=== PATIENT | female | born 2005 | race Two or more races ===

== ENCOUNTER 2025-02-07 07:41 | Inpatient (IN) ==
[2025-02-07] MEDS ORDERED: LIDOCAINE 1% LOCAL 20 ML VIAL INFIL PRN (09:43)
[2025-02-07] MEDS ORDERED: OXYTOCIN 30 UNITS/NSS 30 UNITS/500 ML BAG IV PRN (09:43)
--- NOTE | 2025-02-07 09:43 | Obstetrical Progress Note ---
Date of Service February 07, 2025 Assessment & Plan (1) Encounter for induction of labor: Plan: Induction of labor. Patient is a 19-year-old at 39+ weeks On arrival today patient has no shortness of breath no chills no fever no rupture of membranes or bloody show. Patient has breath plan I have reviewed with plan patient including the use of Pitocin. heart rate category 1 Bedside ultrasound shows cephalic presentation. Vaginal exam; centimeters/50%/posterior Plan 1 admit 2.Labs 3.Cytotec PO 4. GBS positive. Prophylactic antibiotics. Admission and Anticipated Discharge Date Admission Date: February 07, 2025 Results & Data Vital Signs (Past 12 Hours) Vital Signs Temp Pulse Resp BP 02/07/25 07:57 36.8 C 18 02/07/25 07:53 69 119/68 02/07/25 07:52 18 02/07/25 07:52 36.8 C 18
[2025-02-07] MEDS ORDERED: Nursing to Pharmacy Communication SCH (10:00)
[2025-02-07] MEDS: miSOPROStoL 50 MCG TAB PO SCH (10:00)
[2025-02-07 10:21] LABS: Hematocrit (blood only) 36.5 % (37.0-47.0); Hemoglobin 12.8 g/dL (12.0-16.0); Mean Corpuscular Hemoglobin 30.5 pg (25.0-34.0); Mean Corpuscular Volume 87.1 fL (80.0-100.0); Platelet Count 189 K/uL (130-400); RDW Standard Deviation 38.7 fL (36.4-46.3); Red Blood Count 4.19 M/uL (4.20-5.40); White Blood Count 8.47 K/ul (4.8-10.8)
[2025-02-07] MEDS ORDERED: miSOPROStoL 50 MCG TAB PO SCH (12:00)
--- NOTE | 2025-02-07 14:42 | Obstetrical Progress Note ---
Date of Service February 07, 2025 Assessment & Plan (1) Encounter for induction of labor: Plan: FHR CAT! Ctx 2-3mins VE 2/75/-2 pt received one dose of Cytotoec earlier Plan start Pitocin augmentation Admission and Anticipated Discharge Date Admission Date: February 07, 2025 Results & Data Vital Signs (Past 12 Hours) Vital Signs Temp Pulse Resp BP O2 Del Method 02/07/25 11:32 63 114/58 L 02/07/25 11:31 36.6 C 18 Room Air 02/07/25 11:31 18 02/07/25 11:31 36.6 C 18 02/07/25 07:57 36.8 C 18 02/07/25 07:53 69 119/68 02/07/25 07:52 18 02/07/25 07:52 36.8 C 18
[2025-02-07] MEDS: LACTATED RINGER'S 1,000 ML IV PRN (14:54)
--- NOTE | 2025-02-07 15:17 | Anesthesiology Consultation ---
Date of Service February 07, 2025 Assessment & Plan Chart Review Chart Review: Acceptable Risk for Labor Epidural Consults Requested none History Height/Weight Height: 5 ft 2 in Weight: 91.626 kg Allergies Allergy/AdvReac Type Severity Reaction Status Date / Time folic acid [From Megavite] Allergy Rash Verified 01/19/25 00:59 herbal complex no.190 Allergy Rash Verified 01/19/25 00:59 [From Megavite] iron [From Megavite] Allergy Rash Verified 01/19/25 00:59 latex Allergy Rash Verified 01/19/25 00:36 Milk Containing Products Allergy Nausea Verified 01/19/25 01:00 (Dairy) multivitamin with minerals Allergy Rash Verified 01/19/25 00:59 [From Megavite] Medications Home Medications Medication Instructions Recorded Confirmed Last Taken clindamycin 1 %-benzoyl peroxide 5 1 applic topical AMHS 01/26/25 02/07/25 02/06/25 % topical gel ferrous sulfate 325 mg (65 mg 325 mg PO DAILY 01/26/25 02/07/25 02/06/25 iron) tablet (iron) bn-wxw-nhxgb 180 mcg-om3 32.5 1 tab PO DAILY 01/26/25 02/07/25 02/07/25 ft-zuv-cuw-other mm6f-[id number] chew tablet ( Gummies (DHA-EPA)) promethazine 25 mg tablet 25 mg PO Q6 PRN Nausea 01/26/25 02/07/25 Unknown Active Medications Generic Name Dose Route Start Last Admin Trade Name Freq PRN Reason Stop Dose Admin Lactated Ringer's 1,000 mls @ 125 mls/hr 02/07/25 09:43 02/07/25 15:03 Lr IV 02/09/25 09:42 125 mls/hr .Q8H PRN Infusion L&D Protocol Protocol Misoprostol 50 mcg 02/07/25 10:00 02/07/25 10:00 Misoprostol 50 Mcg Tab PO 03/09/25 09:59 50 mcg Q4 NOAH Administration Past Family History Family History Other Breast cancer Diabetes Heart disease Past Surgical History Surgical History Hx of cholecystectomy Status post wisdom tooth extraction [place] teeth removed Social History Smoking Status: Never smoker Do You Dip or Chew Tobacco: No Hx Alcohol Use: No Hx Substance Use: No Physical Exam Vital Signs Last Vital Signs Temp 36.6 C 02/07/25 11:31 Pulse 63 02/07/25 11:32 Resp 18 02/07/25 11:31 BP 114/58 L 02/07/25 11:32 O2 Del Method Room Air 02/07/25 11:31 Testing Laboratory Results 02/07/25 09:14 Blood Type A Positive 02/07/25 09:18 Antibody Screen NEGATIVE 02/07/25 09:18
[2025-02-07] MEDS ORDERED: diphenhydrAMINE 50 MG/ML VIAL IV PRN (15:19)
[2025-02-07] MEDS ORDERED: ROPIVACAINE 0.5% PF 5 MG/ML 20 ML VIAL EPI PRN (15:19)
[2025-02-07] MEDS ORDERED: NALOXONE HCL 1 MG in SODIUM CHLORIDE 0.9% 1,000 ML IV PRN (15:19)
[2025-02-07] MEDS ORDERED: LIDOCAINE 2% MPF LOCAL 5 ML VIAL EPI PRN (15:19)
[2025-02-07] MEDS ORDERED: SODIUM CHLORIDE 0.9% PF INJ 10 ML VIAL EPI PRN (15:19)
[2025-02-07] MEDS ORDERED: NALBUPHINE HCL INJ 10 MG/ML AMP IV PRN (15:19)
[2025-02-07] MEDS ORDERED: NALOXONE HCL 0.4 MG/1 ML VIAL/CARP IV PRN (15:19)
[2025-02-07] MEDS ORDERED: BUPIVACAINE 0.25% PF 30 ML VIAL EPI PRN (15:19)
[2025-02-07] MEDS: LIDOCAINE 2%/EPINEPHRINE 1:200,000 20 ML PF ONE (15:42)
[2025-02-07] MEDS: fentANYL 2 MCG/ML BUPIVacaine 0.125%-NSS 100ML BAG ONE (15:42)
[2025-02-07] MEDS: PENICILLIN GK 6 MU in DEXTROSE 5% 250 ML IV STA (15:42)
[2025-02-07] MEDS: SODIUM CHLORIDE 0.9% PF INJ 10 ML VIAL ONE (16:01)
[2025-02-07] MEDS: BUPIVACAINE 0.25% PF 30 ML VIAL ONE (16:01)
[2025-02-07] MEDS: BUPIVACAINE 0.25% PF 30 ML VIAL EPI STA (16:01)
[2025-02-07] MEDS: SODIUM CHLORIDE 0.9% PF INJ 10 ML VIAL EPI STA (16:02)
[2025-02-07] MEDS: LIDOCAINE 2%/EPINEPHRINE 1:200,000 20 ML PF EPI STA (16:02)
--- NOTE | 2025-02-07 16:54 | Obstetrical Progress Note ---
Date of Service February 07, 2025 Assessment & Plan (1) Encounter for induction of labor: Plan: Doing well Received epidural. heart rate category 1 Contractions; 2 to 3 minutes. Vaginal exam; 3/75%/-2 Pitocin ; None Padded antibiotic for GBS prophylaxis. Attempt to AB ROM with amnio hook and scalp electrode showed very little flid Plan Continue labor induction Post will start Pitocin augmentation if contractions spaced out or decrease in frequency or intensity. Admission and Anticipated Discharge Date Admission Date: February 07, 2025 Results & Data Vital Signs (Past 12 Hours) Vital Signs Temp Pulse Resp BP Pulse Ox Pulse Ox O2 Del Method 02/07/25 16:49 63 129/83 02/07/25 16:45 58 L 100 02/07/25 16:40 63 99 02/07/25 16:35 47 L 98 02/07/25 16:34 64 129/71 02/07/25 16:30 51 L 98 02/07/25 16:25 54 L 98 02/07/25 16:20 59 L 99 02/07/25 16:19 54 L 124/62 02/07/25 16:15 57 L 98 02/07/25 16:10 62 98 02/07/25 16:05 67 98 02/07/25 16:03 58 L 113/64 02/07/25 16:00 100 02/07/25 16:00 55 L 98 02/07/25 15:55 63 99 02/07/25 15:50 62 98 02/07/25 15:47 64 111/62 02/07/25 15:45 69 105/59 L 96 02/07/25 15:43 71 100/58 L 02/07/25 15:41 63 106/58 L 02/07/25 15:40 98 02/07/25 15:40 69 02/07/25 15:40 67 115/61 02/07/25 15:35 58 L 98 02/07/25 15:30 63 99 02/07/25 15:25 73 97 02/07/25 11:32 63 114/58 L 02/07/25 11:31 36.6 C 18 Room Air 02/07/25 11:31 18 02/07/25 11:31 36.6 C 18 02/07/25 07:57 36.8 C 18 02/07/25 07:53 69 119/68 12/01/25 07:52 18 02/07/25 07:52 36.8 C 18 O2 Del Method 02/07/25 16:49 02/07/25 16:45 02/07/25 16:40 02/07/25 16:35 02/07/25 16:34 02/07/25 16:30 02/07/25 16:25 02/07/25 16:20 02/07/25 16:19 02/07/25 16:15 02/07/25 16:10 02/07/25 16:05 02/07/25 16:03 02/07/25 16:00 Room Air 02/07/25 16:00 02/07/25 15:55 02/07/25 15:50 02/07/25 15:47 02/07/25 15:45 02/07/25 15:43 02/07/25 15:41 02/07/25 15:40 02/07/25 15:40 02/07/25 15:40 02/07/25 15:35 02/07/25 15:30 02/07/25 15:25 02/07/25 11:32 02/07/25 11:31 02/07/25 11:31 02/07/25 11:31 02/07/25 07:57 02/07/25 07:53 02/07/25 07:52 02/07/25 07:52
[2025-02-07] MEDS: OXYTOCIN 30 UNITS/NSS 30 UNITS/500 ML BAG IV PRN (17:07)
[2025-02-07] MEDS: PENICILLIN GK 3 MU in DEXTROSE 5% 100 ML IV PRN (20:31)
--- NOTE | 2025-02-07 21:53 | Obstetrical Progress Note ---
Date of Service February 07, 2025 Assessment & Plan (1) Encounter for induction of labor: Plan: Pt doing well FHR; CAT1 Ctx; Poor tracing Pit; 8Mu Antibx for GBS prophy VE; 3/75/-2 with bulging membranes ARM with amnio hook- clear fluid IUPC placed without difficulty for better ctx. tracing Admission and Anticipated Discharge Date Admission Date: February 07, 2025 Results & Data Vital Signs (Past 12 Hours) Vital Signs Temp Pulse Resp BP Pulse Ox Pulse Ox O2 Del Method 02/07/25 21:45 80 100 02/07/25 21:40 58 L 99 02/07/25 21:37 54 L 119/64 02/07/25 21:35 48 L 99 02/07/25 21:30 49 L 97 02/07/25 21:25 50 L 97 02/07/25 21:22 46 L 112/60 02/07/25 21:20 49 L 99 02/07/25 21:15 49 L 99 02/07/25 21:10 50 L 100 02/07/25 21:07 46 L 119/58 L 02/07/25 21:05 55 L 99 02/07/25 21:00 52 L 99 02/07/25 20:55 50 L 100 02/07/25 20:53 50 L 131/60 02/07/25 20:50 50 L 98 02/07/25 20:45 82 100 02/07/25 20:41 71 101/53 L 02/07/25 20:40 77 98 02/07/25 20:39 73 95/47 L 02/07/25 20:38 86 109/52 L 02/07/25 20:35 84 99 02/07/25 20:30 61 98 02/07/25 20:25 66 99 02/07/25 20:23 60 138/78 02/07/25 20:20 67 98 02/07/25 20:15 83 98 02/07/25 20:10 66 98 02/07/25 20:07 55 L 117/68 02/07/25 20:05 51 L 98 02/07/25 20:00 56 L 98 02/07/25 19:55 62 97 02/07/25 19:50 61 98 02/07/25 19:45 53 L 98 02/07/25 19:40 64 97 02/07/25 19:38 59 L 118/55 L 02/07/25 19:35 61 98 02/07/25 19:30 65 99 02/07/25 19:25 54 L 100 02/07/25 19:23 59 L 123/72 02/07/25 19:20 48 L 98 02/07/25 19:15 60 97 02/07/25 19:10 66 100 02/07/25 19:07 59 L 118/71 02/07/25 19:05 36.8 C 51 L 18 100 02/07/25 18:55 50 L 98 02/07/25 18:50 48 L 99 02/07/25 18:49 63 158/74 H 02/07/25 18:45 58 L 99 02/07/25 18:40 61 98 02/07/25 18:35 51 L 97 02/07/25 18:34 54 L 120/58 L 02/07/25 18:30 53 L 98 02/07/25 18:25 53 L 99 02/07/25 18:20 51 L 97 02/07/25 18:19 74 124/81 02/07/25 18:15 55 L 99 02/07/25 18:10 51 L 100 02/07/25 18:05 54 L 125/71 100 02/07/25 18:00 58 L 18 98 02/07/25 17:55 48 L 97 02/07/25 17:50 45 L 98 02/07/25 17:49 47 L 126/58 L 02/07/25 17:45 46 L 98 02/07/25 17:40 47 L 98 02/07/25 17:35 54 L 99 02/07/25 17:30 54 L 97 02/07/25 17:25 53 L 96 02/07/25 17:20 51 L 98 02/07/25 17:18 58 L 129/74 02/07/25 17:15 64 98 02/07/25 17:10 68 99 02/07/25 17:05 57 L 98 02/07/25 17:03 66 125/81 02/07/25 17:00 36.8 C 63 18 98 02/07/25 16:55 66 98 02/07/25 16:50 71 100 02/07/25 16:49 63 129/83 02/07/25 16:45 58 L 100 02/07/25 16:40 63 99 02/07/25 16:35 47 L 98 02/07/25 16:34 64 129/71 02/07/25 16:30 51 L 98 02/07/25 16:25 54 L 98 02/07/25 16:20 59 L 99 02/07/25 16:19 54 L 124/62 02/07/25 16:15 57 L 98 02/07/25 16:10 62 98 02/07/25 16:05 67 98 02/07/25 16:03 58 L 113/64 02/07/25 16:00 100 02/07/25 16:00 55 L 18 98 02/07/25 15:55 63 99 02/07/25 15:50 62 98 02/07/25 15:47 64 111/62 02/07/25 15:45 69 105/59 L 96 02/07/25 15:43 71 100/58 L 02/07/25 15:41 63 106/58 L 02/07/25 15:40 98 02/07/25 15:40 69 02/07/25 15:40 67 115/61 02/07/25 15:35 58 L 98 02/07/25 15:30 63 99 02/07/25 15:25 73 97 02/07/25 11:32 63 114/58 L 02/07/25 11:31 36.6 C 18 Room Air 02/07/25 11:31 18 02/07/25 11:31 36.6 C 18 O2 Del Method 02/07/25 21:45 02/07/25 21:40 02/07/25 21:37 02/07/25 21:35 02/07/25 21:30 02/07/25 21:25 02/07/25 21:22 02/07/25 21:20 02/07/25 21:15 02/07/25 21:10 02/07/25 21:07 02/07/25 21:05 02/07/25 21:00 02/07/25 20:55 02/07/25 20:53 02/07/25 20:50 02/07/25 20:45 02/07/25 20:41 02/07/25 20:40 02/07/25 20:39 02/07/25 20:38 02/07/25 20:35 02/07/25 20:30 02/07/25 20:25 02/07/25 20:23 02/07/25 20:20 02/07/25 20:15 02/07/25 20:10 02/07/25 20:07 02/07/25 20:05 02/07/25 20:00 02/07/25 19:55 02/07/25 19:50 02/07/25 19:45 02/07/25 19:40 02/07/25 19:38 02/07/25 19:35 02/07/25 19:30 02/07/25 19:25 02/07/25 19:23 02/07/25 19:20 02/07/25 19:15 02/07/25 19:10 02/07/25 19:07 02/07/25 19:05 02/07/25 18:55 02/07/25 18:50 02/07/25 18:49 02/07/25 18:45 02/07/25 18:40 02/07/25 18:35 02/07/25 18:34 02/07/25 18:30 02/07/25 18:25 02/07/25 18:20 02/07/25 18:19 02/07/25 18:15 02/07/25 18:10 02/07/25 18:05 02/07/25 18:00 02/07/25 17:55 02/07/25 17:50 02/07/25 17:49 02/07/25 17:45 02/07/25 17:40 02/07/25 17:35 02/07/25 17:30 02/07/25 17:25 02/07/25 17:20 02/07/25 17:18 02/07/25 17:15 02/07/25 17:10 02/07/25 17:05 02/07/25 17:03 02/07/25 17:00 02/07/25 16:55 02/07/25 16:50 02/07/25 16:49 02/07/25 16:45 02/07/25 16:40 02/07/25 16:35 02/07/25 16:34 02/07/25 16:30 02/07/25 16:25 02/07/25 16:20 02/07/25 16:19 02/07/25 16:15 02/07/25 16:10 02/07/25 16:05 02/07/25 16:03 02/07/25 16:00 Room Air 02/07/25 16:00 02/07/25 15:55 02/07/25 15:50 02/07/25 15:47 02/07/25 15:45 02/07/25 15:43 02/07/25 15:41 02/07/25 15:40 02/07/25 15:40 02/07/25 15:40 02/07/25 15:35 02/07/25 15:30 02/07/25 15:25 02/07/25 11:32 02/07/25 11:31 02/07/25 11:31 02/07/25 11:31
[2025-02-08] MEDS: fentANYL 2 MCG/ML BUPIVacaine 0.125%-NSS 100ML BAG EPI PRN (00:31)
--- NOTE | 2025-02-08 03:34 | OB/GYN Consultation ---
Date of Consultation February 08, 2025 Assessment & Plan (1) Encounter for induction of labor: Pt doing well FHR shows recurrent early decels with ?late recovery component. Moderate variability VE; 4/75/-2 with bloody show Pitocin is 4mu Pit turned off. IVF bolus started and oxygen given Will reevaluate History of Present Illness Attending Physician: Sam Ragsdale MD Allergies Allergy/AdvReac Type Severity Reaction Status Date / Time folic acid [From Megavite] Allergy Rash Verified 01/19/25 00:59 herbal complex no.190 Allergy Rash Verified 01/19/25 00:59 [From Megavite] iron [From Megavite] Allergy Rash Verified 01/19/25 00:59 latex Allergy Rash Verified 01/19/25 00:36 Milk Containing Products Allergy Nausea Verified 01/19/25 01:00 (Dairy) multivitamin with minerals Allergy Rash Verified 01/19/25 00:59 [From Megavite] Home Medications Medication Instructions Recorded Confirmed Type clindamycin 1 %-benzoyl peroxide 5 1 applic topical AMHS 01/26/25 02/07/25 History % topical gel ferrous sulfate 325 mg (65 mg 325 mg PO DAILY 01/26/25 02/07/25 History iron) tablet (iron) vg-maq-nogig 180 mcg-om3 32.5 1 tab PO DAILY 01/26/25 02/07/25 History rm-hks-wgv-other zv3s-usjs chew tablet ( Gummies (DHA-EPA)) promethazine 25 mg tablet 25 mg PO Q6 PRN Nausea 01/26/25 02/07/25 History Patient History Surgical History Hx of cholecystectomy Status post wisdom tooth extraction [place] teeth removed Family History Other Breast cancer Diabetes Heart disease Social History (Updated 02/07/25 @ 07:44 by Vanessa Lala RN) Smoking Status: Never smoker Second Hand Exposure: No; Do You Dip or Chew Tobacco: No; Tobacco Cessation Education Requested by Patient: No Hx Alcohol Use: No Hx Substance Use: No Preferred Language: Polish Communication Ability: Effective Gaming Floor Supervisor Required: No Beliefs That Will Affect Care: None marital status: Engaged Current Living Situation: Significant Other Other Information That Helps Us Care for You: No Feels Safe at Home: Yes Safety Concerns: Feels Safe At This Time Assistive Devices: None Results & Data Vital Signs (Past 12 Hours) Vital Signs Temp Pulse Resp BP Pulse Ox Pulse Ox O2 Del Method 02/08/25 03:25 58 L 100 02/08/25 03:23 51 L 119/61 02/08/25 03:20 62 100 02/08/25 03:16 65 107/58 L 02/08/25 03:15 78 98 02/08/25 03:10 70 99 02/08/25 03:08 81 106/58 L 02/08/25 03:05 109 H 100 02/08/25 03:00 37.4 C 54 L 18 98 02/08/25 02:55 52 L 98 02/08/25 02:52 46 L 101/52 L 02/08/25 02:50 49 L 96 02/08/25 02:45 48 L 96 02/08/25 02:40 47 L 97 02/08/25 02:38 48 L 97/56 L 02/08/25 02:35 48 L 97 02/08/25 02:30 48 L 97 02/08/25 02:25 51 L 97 02/08/25 02:22 50 L 97/55 L 02/08/25 02:20 50 L 97 02/08/25 02:15 44 L 97 02/08/25 02:10 46 L 97 02/08/25 02:07 46 L 96/51 L 02/08/25 02:05 47 L 96 02/08/25 02:00 47 L 96 02/08/25 01:55 47 L 97 02/08/25 01:51 46 L 105/52 L 02/08/25 01:50 46 L 97 02/08/25 01:45 47 L 96 02/08/25 01:40 49 L 97 02/08/25 01:37 46 L 99/51 L 02/08/25 01:35 52 L 98 02/08/25 01:30 50 L 98 02/08/25 01:25 49 L 99 02/08/25 01:23 66 116/65 02/08/25 01:20 52 L 98 02/08/25 01:15 53 L 98 02/08/25 01:10 51 L 96 02/08/25 01:07 48 L 106/56 L 02/08/25 01:05 50 L 98 02/08/25 01:00 54 L 99 02/08/25 00:55 56 L 99 02/08/25 00:53 54 L 92/58 L 02/08/25 00:50 51 L 99 02/08/25 00:45 53 L 98 02/08/25 00:40 61 99 02/08/25 00:38 52 L 106/59 L 02/08/25 00:35 63 100 02/08/25 00:30 56 L 18 99 02/08/25 00:25 57 L 100 02/08/25 00:22 53 L 108/54 L 02/08/25 00:20 63 100 02/08/25 00:15 55 L 100 02/08/25 00:10 52 L 99 02/08/25 00:08 64 105/62 02/08/25 00:05 55 L 100 02/08/25 00:00 56 L 100 02/07/25 23:55 129 H 98 02/07/25 23:50 91 H 99 02/07/25 23:45 66 99 02/07/25 23:40 52 L 96 02/07/25 23:37 51 L 124/63 02/07/25 23:35 50 L 96 02/07/25 23:30 49 L 98 02/07/25 23:25 61 99 02/07/25 23:23 53 L 125/61 02/07/25 23:20 56 L 98 02/07/25 23:15 61 97 02/07/25 23:10 59 L 98 02/07/25 23:08 58 L 123/64 02/07/25 23:05 64 96 02/07/25 23:00 36.9 C 58 L 18 98 02/07/25 22:55 58 L 98 02/07/25 22:53 59 L 133/68 02/07/25 22:50 61 99 02/07/25 22:45 56 L 99 02/07/25 22:40 51 L 99 02/07/25 22:37 63 143/84 H 02/07/25 22:35 52 L 100 02/07/25 22:30 50 L 18 100 02/07/25 22:25 58 L 100 02/07/25 22:24 59 L 91 02/07/25 22:23 56 L 144/80 H 02/07/25 22:20 60 99 02/07/25 22:15 51 L 99 02/07/25 22:10 65 100 02/07/25 22:08 67 127/72 02/07/25 22:05 52 L 100 02/07/25 22:01 67 125/81 02/07/25 22:00 79 18 100 02/07/25 21:58 78 122/57 L 02/07/25 21:55 80 100 02/07/25 21:53 72 80/51 L 02/07/25 21:50 79 100 02/07/25 21:45 80 100 02/07/25 21:44 18 02/07/25 21:44 18 02/07/25 21:40 58 L 99 02/07/25 21:37 54 L 119/64 02/07/25 21:35 48 L 99 02/07/25 21:30 49 L 97 02/07/25 21:25 50 L 97 02/07/25 21:22 46 L 112/60 02/07/25 21:20 49 L 99 02/07/25 21:15 49 L 99 02/07/25 21:10 50 L 100 02/07/25 21:07 46 L 119/58 L 02/07/25 21:05 55 L 99 02/07/25 21:00 52 L 99 02/07/25 20:55 50 L 100 02/07/25 20:53 50 L 131/60 02/07/25 20:50 50 L 98 02/07/25 20:45 82 100 02/07/25 20:41 71 101/53 L 02/07/25 20:40 77 98 02/07/25 20:39 73 95/47 L 02/07/25 20:38 86 109/52 L 02/07/25 20:35 84 99 02/07/25 20:30 61 98 02/07/25 20:25 66 99 02/07/25 20:23 60 138/78 02/07/25 20:20 67 98 02/07/25 20:15 83 98 02/07/25 20:10 66 98 02/07/25 20:07 55 L 117/68 02/07/25 20:05 51 L 98 02/07/25 20:00 56 L 98 02/07/25 19:55 62 97 02/07/25 19:50 61 98 02/07/25 19:45 53 L 98 02/07/25 19:40 64 97 02/07/25 19:38 59 L 118/55 L 02/07/25 19:35 61 98 02/07/25 19:30 65 99 02/07/25 19:25 54 L 100 02/07/25 19:23 59 L 123/72 02/07/25 19:20 48 L 98 02/07/25 19:15 60 97 02/07/25 19:10 66 100 02/07/25 19:07 59 L 118/71 02/07/25 19:05 36.8 C 51 L 18 100 02/07/25 18:55 50 L 98 02/07/25 18:50 48 L 99 02/07/25 18:49 63 158/74 H 02/07/25 18:45 58 L 99 02/07/25 18:40 61 98 02/07/25 18:35 51 L 97 02/07/25 18:34 54 L 120/58 L 02/07/25 18:30 53 L 98 02/07/25 18:25 53 L 99 02/07/25 18:20 51 L 97 02/07/25 18:19 74 124/81 02/07/25 18:15 55 L 99 02/07/25 18:10 51 L 100 02/07/25 18:05 54 L 125/71 100 02/07/25 18:00 58 L 18 98 02/07/25 17:55 48 L 97 02/07/25 17:50 45 L 98 02/07/25 17:49 47 L 126/58 L 02/07/25 17:45 46 L 98 02/07/25 17:40 47 L 98 02/07/25 17:35 54 L 99 02/07/25 17:30 54 L 97 02/07/25 17:25 53 L 96 02/07/25 17:20 51 L 98 02/07/25 17:18 58 L 129/74 02/07/25 17:15 64 98 02/07/25 17:10 68 99 02/07/25 17:05 57 L 98 02/07/25 17:03 66 125/81 02/07/25 17:00 36.8 C 63 18 98 02/07/25 16:55 66 98 02/07/25 16:50 71 100 02/07/25 16:49 63 129/83 02/07/25 16:45 58 L 100 02/07/25 16:40 63 99 02/07/25 16:35 47 L 98 02/07/25 16:34 64 129/71 02/07/25 16:30 51 L 98 02/07/25 16:25 54 L 98 02/07/25 16:20 59 L 99 02/07/25 16:19 54 L 124/62 02/07/25 16:15 57 L 98 02/07/25 16:10 62 98 02/07/25 16:05 67 98 02/07/25 16:03 58 L 113/64 02/07/25 16:00 100 Room Air 02/07/25 16:00 55 L 18 98 02/07/25 15:55 63 99 02/07/25 15:50 62 98 02/07/25 15:47 64 111/62 02/07/25 15:45 69 105/59 L 96 02/07/25 15:43 71 100/58 L 02/07/25 15:41 63 106/58 L 02/07/25 15:40 98 02/07/25 15:40 69 02/07/25 15:40 67 115/61 02/07/25 15:35 58 L 98 02/07/25 15:30 63 99
--- NOTE | 2025-02-08 03:57 | OB/GYN Consultation ---
Date of Consultation February 08, 2025 Assessment & Plan (1) Encounter for induction of labor: FHR is improved, now CAT1 Pt is nauseous and vomiting Rx for Zofran ordered Plan Continue to monitor FHR History of Present Illness Attending Physician: Sam Ragsdale MD Allergies Allergy/AdvReac Type Severity Reaction Status Date / Time folic acid [From Megavite] Allergy Rash Verified 01/19/25 00:59 herbal complex no.[id number] Allergy Rash Verified 01/19/25 00:59 [From Megavite] iron [From Megavite] Allergy Rash Verified 01/19/25 00:59 latex Allergy Rash Verified 01/19/25 00:36 Milk Containing Products Allergy Nausea Verified 01/19/25 01:00 (Dairy) multivitamin with minerals Allergy Rash Verified 01/19/25 00:59 [From Megavite] Home Medications Medication Instructions Recorded Confirmed Type clindamycin 1 %-benzoyl peroxide 5 1 applic topical AMHS 01/26/25 02/07/25 History % topical gel ferrous sulfate 325 mg (65 mg 325 mg PO DAILY 01/26/25 02/07/25 History iron) tablet (iron) [id number]-[id number] 180 mcg-om3 32.5 1 tab PO DAILY 01/26/25 02/07/25 History [id number] chew tablet ( Gummies (DHA-EPA)) promethazine 25 mg tablet 25 mg PO Q6 PRN Nausea 01/26/25 02/07/25 History Patient History Surgical History Hx of cholecystectomy Status post wisdom tooth extraction [place] teeth removed Family History Other Breast cancer Diabetes Heart disease Social History (Updated 02/07/25 @ 07:44 by Vanessa Lala RN) Smoking Status: Never smoker Second Hand Exposure: No; Do You Dip or Chew Tobacco: No; Tobacco Cessation Education Requested by Patient: No Hx Alcohol Use: No Hx Substance Use: No Preferred Language: Chinese Communication Ability: Effective Group Fitness Assistant Department Head Required: No Beliefs That Will Affect Care: None marital status: Engaged Current Living Situation: Significant Other Other Information That Helps Us Care for You: No Feels Safe at Home: Yes Safety Concerns: Feels Safe At This Time Assistive Devices: None Results & Data Vital Signs (Past 12 Hours) Vital Signs Temp Pulse Resp BP Pulse Ox Pulse Ox O2 Del Method 02/08/25 03:50 81 100 02/08/25 03:45 70 100 02/08/25 03:40 60 100 02/08/25 03:38 59 L 112/58 L 02/08/25 03:35 54 L 100 02/08/25 03:30 55 L 100 02/08/25 03:25 58 L 100 02/08/25 03:23 51 L 119/61 02/08/25 03:20 62 100 02/08/25 03:16 65 107/58 L 02/08/25 03:15 78 98 02/08/25 03:10 70 99 02/08/25 03:08 81 106/58 L 02/08/25 03:05 109 H 100 02/08/25 03:00 37.4 C 54 L 18 98 02/08/25 02:55 52 L 98 02/08/25 02:52 46 L 101/52 L 02/08/25 02:50 49 L 96 02/08/25 02:45 48 L 96 02/08/25 02:40 47 L 97 02/08/25 02:38 48 L 97/56 L 02/08/25 02:35 48 L 97 02/08/25 02:30 48 L 97 02/08/25 02:25 51 L 97 02/08/25 02:22 50 L 97/55 L 02/08/25 02:20 50 L 97 02/08/25 02:15 44 L 97 02/08/25 02:10 46 L 97 02/08/25 02:07 46 L 96/51 L 02/08/25 02:05 47 L 96 02/08/25 02:00 47 L 96 02/08/25 01:55 47 L 97 02/08/25 01:51 46 L 105/52 L 02/08/25 01:50 46 L 97 02/08/25 01:45 47 L 96 02/08/25 01:40 49 L 97 02/08/25 01:37 46 L 99/51 L 02/08/25 01:35 52 L 98 02/08/25 01:30 50 L 98 02/08/25 01:25 49 L 99 02/08/25 01:23 66 116/65 12/02/25 01:20 52 L 98 02/08/25 01:15 53 L 98 02/08/25 01:10 51 L 96 02/08/25 01:07 48 L 106/56 L 02/08/25 01:05 50 L 98 02/08/25 01:00 54 L 99 02/08/25 00:55 56 L 99 02/08/25 00:53 54 L 92/58 L 02/08/25 00:50 51 L 99 02/08/25 00:45 53 L 98 02/08/25 00:40 61 99 02/08/25 00:38 52 L 106/59 L 02/08/25 00:35 63 100 02/08/25 00:30 56 L 18 99 02/08/25 00:25 57 L 100 02/08/25 00:22 53 L 108/54 L 02/08/25 00:20 63 100 02/08/25 00:15 55 L 100 02/08/25 00:10 52 L 99 02/08/25 00:08 64 105/62 02/08/25 00:05 55 L 100 02/08/25 00:00 56 L 100 02/07/25 23:55 129 H 98 02/07/25 23:50 91 H 99 02/07/25 23:45 66 99 02/07/25 23:40 52 L 96 02/07/25 23:37 51 L 124/63 02/07/25 23:35 50 L 96 02/07/25 23:30 49 L 98 02/07/25 23:25 61 99 02/07/25 23:23 53 L 125/61 02/07/25 23:20 56 L 98 02/07/25 23:15 61 97 02/07/25 23:10 59 L 98 02/07/25 23:08 58 L 123/64 02/07/25 23:05 64 96 02/07/25 23:00 36.9 C 58 L 18 98 02/07/25 22:55 58 L 98 02/07/25 22:53 59 L 133/68 02/07/25 22:50 61 99 02/07/25 22:45 56 L 99 02/07/25 22:40 51 L 99 02/07/25 22:37 63 143/84 H 02/07/25 22:35 52 L 100 02/07/25 22:30 50 L 18 100 02/07/25 22:25 58 L 100 02/07/25 22:24 59 L 91 02/07/25 22:23 56 L 144/80 H 02/07/25 22:20 60 99 02/07/25 22:15 51 L 99 02/07/25 22:10 65 100 02/07/25 22:08 67 127/72 02/07/25 22:05 52 L 100 02/07/25 22:01 67 125/81 02/07/25 22:00 79 18 100 02/07/25 21:58 78 122/57 L 02/07/25 21:55 80 100 02/07/25 21:53 72 80/51 L 02/07/25 21:50 79 100 02/07/25 21:45 80 100 02/07/25 21:44 18 02/07/25 21:44 18 02/07/25 21:40 58 L 99 02/07/25 21:37 54 L 119/64 02/07/25 21:35 48 L 99 02/07/25 21:30 49 L 97 02/07/25 21:25 50 L 97 02/07/25 21:22 46 L 112/60 02/07/25 21:20 49 L 99 02/07/25 21:15 49 L 99 02/07/25 21:10 50 L 100 02/07/25 21:07 46 L 119/58 L 02/07/25 21:05 55 L 99 02/07/25 21:00 52 L 99 02/07/25 20:55 50 L 100 02/07/25 20:53 50 L 131/60 02/07/25 20:50 50 L 98 02/07/25 20:45 82 100 02/07/25 20:41 71 101/53 L 02/07/25 20:40 77 98 02/07/25 20:39 73 95/47 L 02/07/25 20:38 86 109/52 L 02/07/25 20:35 84 99 02/07/25 20:30 61 98 02/07/25 20:25 66 99 02/07/25 20:23 60 138/78 02/07/25 20:20 67 98 02/07/25 20:15 83 98 02/07/25 20:10 66 98 02/07/25 20:07 55 L 117/68 02/07/25 20:05 51 L 98 02/07/25 20:00 56 L 98 02/07/25 19:55 62 97 02/07/25 19:50 61 98 02/07/25 19:45 53 L 98 02/07/25 19:40 64 97 02/07/25 19:38 59 L 118/55 L 02/07/25 19:35 61 98 02/07/25 19:30 65 99 02/07/25 19:25 54 L 100 02/07/25 19:23 59 L 123/72 02/07/25 19:20 48 L 98 02/07/25 19:15 60 97 02/07/25 19:10 66 100 02/07/25 19:07 59 L 118/71 02/07/25 19:05 36.8 C 51 L 18 100 02/07/25 18:55 50 L 98 02/07/25 18:50 48 L 99 02/07/25 18:49 63 158/74 H 02/07/25 18:45 58 L 99 02/07/25 18:40 61 98 02/07/25 18:35 51 L 97 02/07/25 18:34 54 L 120/58 L 02/07/25 18:30 53 L 98 02/07/25 18:25 53 L 99 02/07/25 18:20 51 L 97 02/07/25 18:19 74 124/81 02/07/25 18:15 55 L 99 02/07/25 18:10 51 L 100 02/07/25 18:05 54 L 125/71 100 02/07/25 18:00 58 L 18 98 02/07/25 17:55 48 L 97 02/07/25 17:50 45 L 98 02/07/25 17:49 47 L 126/58 L 02/07/25 17:45 46 L 98 02/07/25 17:40 47 L 98 02/07/25 17:35 54 L 99 02/07/25 17:30 54 L 97 02/07/25 17:25 53 L 96 02/07/25 17:20 51 L 98 02/07/25 17:18 58 L 129/74 02/07/25 17:15 64 98 02/07/25 17:10 68 99 02/07/25 17:05 57 L 98 02/07/25 17:03 66 125/81 02/07/25 17:00 36.8 C 63 18 98 02/07/25 16:55 66 98 02/07/25 16:50 71 100 02/07/25 16:49 63 129/83 02/07/25 16:45 58 L 100 02/07/25 16:40 63 99 02/07/25 16:35 47 L 98 02/07/25 16:34 64 129/71 02/07/25 16:30 51 L 98 02/07/25 16:25 54 L 98 02/07/25 16:20 59 L 99 02/07/25 16:19 54 L 124/62 02/07/25 16:15 57 L 98 02/07/25 16:10 62 98 02/07/25 16:05 67 98 02/07/25 16:03 58 L 113/64 02/07/25 16:00 100 Room Air 02/07/25 16:00 55 L 18 98
[2025-02-08] MEDS: ONDANSETRON INJ 2 MG/ML 2 ML VIAL IV PRN (03:58)
[2025-02-08] MEDS: ONDANSETRON INJ 2 MG/ML 2 ML VIAL ONE (04:05)
--- NOTE | 2025-02-08 09:20 | Labor Progress Brief Note ---
Date of Service February 08, 2025 Assessment & Plan Admission and Anticipated Discharge Date Admission Date: February 07, 2025 Physical Exam Genitourinary: Manual OB Exam: + cervical dilation 9 cm, + cervical effacement 100%, + station -1 and + amniotic fluid clear OB Exam Monitor Tracing: + external uterine monitor used, + intra-uterine pressure catheter used, + category I and + normal FHT variability Results & Data Vital Signs (Past 12 Hours) Vital Signs Temp Pulse Resp BP Pulse Ox 02/08/25 09:15 59 L 97 02/08/25 09:10 113 H 98 02/08/25 09:08 85 108/52 L 02/08/25 09:05 50 L 96 02/08/25 09:00 37.5 C 55 L 18 95 02/08/25 08:55 48 L 96 02/08/25 08:53 48 L 111/58 L 02/08/25 08:50 60 98 02/08/25 08:45 51 L 98 02/08/25 08:40 54 L 97 02/08/25 08:38 54 L 117/58 L 02/08/25 08:35 57 L 96 02/08/25 08:30 54 L 96 02/08/25 08:25 60 97 02/08/25 08:22 61 104/58 L 02/08/25 08:20 59 L 95 02/08/25 08:15 62 96 02/08/25 08:10 65 96 02/08/25 08:07 73 114/75 02/08/25 08:06 78 93 02/08/25 08:05 72 96 02/08/25 08:00 71 97 02/08/25 07:55 71 96 02/08/25 07:52 71 111/64 02/08/25 07:50 83 96 02/08/25 07:45 71 94 02/08/25 07:40 71 96 02/08/25 07:38 66 104/59 L 02/08/25 07:35 79 96 02/08/25 07:30 37.7 C H 78 18 97 02/08/25 07:25 80 96 02/08/25 07:22 77 122/63 02/08/25 07:20 90 98 02/08/25 07:15 89 97 02/08/25 07:10 96 H 97 02/08/25 07:07 58 L 117/55 L 02/08/25 07:05 64 98 02/08/25 07:00 51 L 97 02/08/25 06:55 53 L 96 02/08/25 06:51 49 L 109/56 L 02/08/25 06:50 50 L 96 02/08/25 06:45 51 L 95 02/08/25 06:40 52 L 96 02/08/25 06:37 50 L 117/58 L 02/08/25 06:35 52 L 96 02/08/25 06:30 47 L 95 02/08/25 06:25 58 L 95 02/08/25 06:23 53 L 106/51 L 02/08/25 06:20 48 L 96 02/08/25 06:19 49 L 94 02/08/25 06:15 49 L 95 02/08/25 06:10 48 L 96 02/08/25 06:08 46 L 110/55 L 02/08/25 06:05 50 L 95 02/08/25 06:00 48 L 96 02/08/25 05:58 55 L 92 02/08/25 05:55 62 96 02/08/25 05:52 75 106/54 L 02/08/25 05:50 54 L 95 02/08/25 05:45 51 L 95 02/08/25 05:40 48 L 95 02/08/25 05:37 62 99/49 L 02/08/25 05:35 49 L 95 02/08/25 05:30 52 L 95 02/08/25 05:26 50 L 94 02/08/25 05:25 50 L 94 02/08/25 05:22 48 L 99/50 L 02/08/25 05:20 49 L 95 02/08/25 05:16 50 L 94 02/08/25 05:15 49 L 96 02/08/25 05:10 48 L 95 02/08/25 05:08 48 L 101/51 L 02/08/25 05:05 50 L 96 02/08/25 05:00 50 L 96 02/08/25 04:55 56 L 97 02/08/25 04:52 49 L 95/50 L 02/08/25 04:50 56 L 96 02/08/25 04:45 55 L 97 02/08/25 04:40 65 98 12/02/25 04:37 66 126/58 L 02/08/25 04:36 18 02/08/25 04:36 37.4 C 18 02/08/25 04:35 64 96 02/08/25 04:30 65 99 02/08/25 04:27 66 91 02/08/25 04:25 69 98 02/08/25 04:22 70 112/56 L 02/08/25 04:20 65 98 02/08/25 04:15 65 99 02/08/25 04:10 75 100 02/08/25 04:08 68 104/56 L 02/08/25 04:05 85 98 02/08/25 04:00 84 100 02/08/25 03:55 112 H 100 02/08/25 03:50 81 100 02/08/25 03:45 70 100 02/08/25 03:40 60 100 02/08/25 03:38 59 L 112/58 L 02/08/25 03:35 54 L 100 02/08/25 03:30 55 L 100 02/08/25 03:25 58 L 100 02/08/25 03:23 51 L 119/61 02/08/25 03:20 62 100 02/08/25 03:16 65 107/58 L 02/08/25 03:15 78 98 02/08/25 03:10 70 99 02/08/25 03:08 81 106/58 L 02/08/25 03:05 109 H 100 02/08/25 03:00 37.4 C 54 L 18 98 02/08/25 02:55 52 L 98 02/08/25 02:52 46 L 101/52 L 02/08/25 02:50 49 L 96 02/08/25 02:45 48 L 96 02/08/25 02:40 47 L 97 02/08/25 02:38 48 L 97/56 L 02/08/25 02:35 48 L 97 02/08/25 02:30 48 L 97 02/08/25 02:25 51 L 97 02/08/25 02:22 50 L 97/55 L 02/08/25 02:20 50 L 97 02/08/25 02:15 44 L 97 02/08/25 02:10 46 L 97 02/08/25 02:07 46 L 96/51 L 02/08/25 02:05 47 L 96 02/08/25 02:00 47 L 96 02/08/25 01:55 47 L 97 02/08/25 01:51 46 L 105/52 L 02/08/25 01:50 46 L 97 02/08/25 01:45 47 L 96 02/08/25 01:40 49 L 97 02/08/25 01:37 46 L 99/51 L 02/08/25 01:35 52 L 98 02/08/25 01:30 50 L 98 02/08/25 01:25 49 L 99 02/08/25 01:23 66 116/65 02/08/25 01:20 52 L 98 02/08/25 01:15 53 L 98 02/08/25 01:10 51 L 96 02/08/25 01:07 48 L 106/56 L 02/08/25 01:05 50 L 98 02/08/25 01:00 54 L 99 02/08/25 00:55 56 L 99 02/08/25 00:53 54 L 92/58 L 02/08/25 00:50 51 L 99 02/08/25 00:45 53 L 98 02/08/25 00:40 61 99 02/08/25 00:38 52 L 106/59 L 02/08/25 00:35 63 100 02/08/25 00:30 56 L 18 99 02/08/25 00:25 57 L 100 02/08/25 00:22 53 L 108/54 L 02/08/25 00:20 63 100 02/08/25 00:15 55 L 100 02/08/25 00:10 52 L 99 02/08/25 00:08 64 105/62 02/08/25 00:05 55 L 100 02/08/25 00:00 56 L 100 02/07/25 23:55 129 H 98 02/07/25 23:50 91 H 99 02/07/25 23:45 66 99 02/07/25 23:40 52 L 96 02/07/25 23:37 51 L 124/63 02/07/25 23:35 50 L 96 02/07/25 23:30 49 L 98 02/07/25 23:25 61 99 02/07/25 23:23 53 L 125/61 02/07/25 23:20 56 L 98 02/07/25 23:15 61 97 02/07/25 23:10 59 L 98 02/07/25 23:08 58 L 123/64 02/07/25 23:05 64 96 02/07/25 23:00 36.9 C 58 L 18 98 02/07/25 22:55 58 L 98 02/07/25 22:53 59 L 133/68 02/07/25 22:50 61 99 02/07/25 22:45 56 L 99 02/07/25 22:40 51 L 99 02/07/25 22:37 63 143/84 H 02/07/25 22:35 52 L 100 02/07/25 22:30 50 L 18 100 02/07/25 22:25 58 L 100 02/07/25 22:24 59 L 91 02/07/25 22:23 56 L 144/80 H 02/07/25 22:20 60 99 02/07/25 22:15 51 L 99 02/07/25 22:10 65 100 02/07/25 22:08 67 127/72 02/07/25 22:05 52 L 100 02/07/25 22:01 67 125/81 02/07/25 22:00 79 18 100 02/07/25 21:58 78 122/57 L 02/07/25 21:55 80 100 02/07/25 21:53 72 80/51 L 02/07/25 21:50 79 100 02/07/25 21:45 80 100 02/07/25 21:44 18 02/07/25 21:44 18 02/07/25 21:40 58 L 99 02/07/25 21:37 54 L 119/64 02/07/25 21:35 48 L 99 02/07/25 21:30 49 L 97 02/07/25 21:25 50 L 97 02/07/25 21:22 46 L 112/60 02/07/25 21:20 49 L 99
--- NOTE | 2025-02-08 11:22 | Labor Progress Brief Note ---
Date of Service February 08, 2025 Subjective Reason For Note: Other patient feeling pressure Assessment & Plan Admission and Anticipated Discharge Date Admission Date: February 07, 2025 Physical Exam Genitourinary: Manual OB Exam: + cervical dilation 10 cm, + cervical effacement 100%, + station 0 and + amniotic fluid clear OB Exam Monitor Tracing: + intra-uterine pressure catheter used, + category I and + normal FHT variability Acevedo removed patient will start to push Results & Data Vital Signs (Past 12 Hours) Vital Signs Temp Pulse Resp BP Pulse Ox 02/08/25 11:15 68 99 02/08/25 11:10 57 L 97 02/08/25 11:07 50 L 139/63 02/08/25 11:05 62 99 02/08/25 11:00 37.2 C 18 02/08/25 11:00 37.2 C 60 18 97 02/08/25 10:55 64 97 02/08/25 10:52 70 138/76 02/08/25 10:50 74 98 02/08/25 10:45 86 98 02/08/25 10:40 78 99 02/08/25 10:37 80 117/70 02/08/25 10:35 79 98 02/08/25 10:30 74 99 02/08/25 10:25 82 98 02/08/25 10:23 73 117/68 02/08/25 10:20 76 99 02/08/25 10:15 104 H 100 02/08/25 10:10 75 98 02/08/25 10:08 96 H 121/70 02/08/25 10:05 71 98 02/08/25 10:00 90 18 99 02/08/25 09:55 75 98 02/08/25 09:52 74 119/60 02/08/25 09:50 71 99 02/08/25 09:45 54 L 99 02/08/25 09:40 50 L 98 02/08/25 09:37 50 L 110/54 L 02/08/25 09:35 50 L 97 02/08/25 09:30 54 L 97 02/08/25 09:25 51 L 98 02/08/25 09:23 51 L 115/63 02/08/25 09:20 54 L 98 02/08/25 09:15 59 L 97 02/08/25 09:10 113 H 98 02/08/25 09:08 85 108/52 L 02/08/25 09:05 50 L 96 02/08/25 09:00 37.5 C 55 L 18 95 02/08/25 08:55 48 L 96 02/08/25 08:53 48 L 111/58 L 02/08/25 08:50 60 98 02/08/25 08:45 51 L 98 02/08/25 08:40 54 L 97 02/08/25 08:38 54 L 117/58 L 02/08/25 08:35 57 L 96 02/08/25 08:30 54 L 96 02/08/25 08:25 60 97 02/08/25 08:22 61 104/58 L 02/08/25 08:20 59 L 95 02/08/25 08:15 62 96 02/08/25 08:10 65 96 02/08/25 08:07 73 114/75 02/08/25 08:06 78 93 02/08/25 08:05 72 96 02/08/25 08:00 71 97 02/08/25 07:55 71 96 02/08/25 07:52 71 111/64 02/08/25 07:50 83 96 02/08/25 07:45 71 94 02/08/25 07:40 71 96 02/08/25 07:38 66 104/59 L 02/08/25 07:35 79 96 02/08/25 07:30 37.7 C H 78 18 97 02/08/25 07:25 80 96 02/08/25 07:22 77 122/63 02/08/25 07:20 90 98 02/08/25 07:15 89 97 02/08/25 07:10 96 H 97 02/08/25 07:07 58 L 117/55 L 02/08/25 07:05 64 98 02/08/25 07:00 51 L 97 02/08/25 06:55 53 L 96 02/08/25 06:51 49 L 109/56 L 02/08/25 06:50 50 L 96 02/08/25 06:45 51 L 95 02/08/25 06:40 52 L 96 02/08/25 06:37 50 L 117/58 L 02/08/25 06:35 52 L 96 02/08/25 06:30 47 L 95 02/08/25 06:25 58 L 95 02/08/25 06:23 53 L 106/51 L 02/08/25 06:20 48 L 96 02/08/25 06:19 49 L 94 02/08/25 06:15 49 L 95 02/08/25 06:10 48 L 96 02/08/25 06:08 46 L 110/55 L 02/08/25 06:05 50 L 95 02/08/25 06:00 48 L 96 02/08/25 05:58 55 L 92 02/08/25 05:55 62 96 02/08/25 05:52 75 106/54 L 02/08/25 05:50 54 L 95 02/08/25 05:45 51 L 95 02/08/25 05:40 48 L 95 02/08/25 05:37 62 99/49 L 02/08/25 05:35 49 L 95 02/08/25 05:30 52 L 95 02/08/25 05:26 50 L 94 02/08/25 05:25 50 L 94 02/08/25 05:22 48 L 99/50 L 02/08/25 05:20 49 L 95 02/08/25 05:16 50 L 94 02/08/25 05:15 49 L 96 02/08/25 05:10 48 L 95 02/08/25 05:08 48 L 101/51 L 02/08/25 05:05 50 L 96 02/08/25 05:00 50 L 96 02/08/25 04:55 56 L 97 02/08/25 04:52 49 L 95/50 L 02/08/25 04:50 56 L 96 02/08/25 04:45 55 L 97 02/08/25 04:40 65 98 02/08/25 04:37 66 126/58 L 02/08/25 04:36 18 02/08/25 04:36 37.4 C 18 02/08/25 04:35 64 96 02/08/25 04:30 65 99 02/08/25 04:27 66 91 02/08/25 04:25 69 98 02/08/25 04:22 70 112/56 L 02/08/25 04:20 65 98 02/08/25 04:15 65 99 02/08/25 04:10 75 100 02/08/25 04:08 68 104/56 L 02/08/25 04:05 85 98 02/08/25 04:00 84 100 02/08/25 03:55 112 H 100 02/08/25 03:50 81 100 02/08/25 03:45 70 100 02/08/25 03:40 60 100 02/08/25 03:38 59 L 112/58 L 02/08/25 03:35 54 L 100 02/08/25 03:30 55 L 100 02/08/25 03:25 58 L 100 02/08/25 03:23 51 L 119/61 02/08/25 03:20 62 100 02/08/25 03:16 65 107/58 L 02/08/25 03:15 78 98 02/08/25 03:10 70 99 02/08/25 03:08 81 106/58 L 02/08/25 03:05 109 H 100 02/08/25 03:00 37.4 C 54 L 18 98 02/08/25 02:55 52 L 98 02/08/25 02:52 46 L 101/52 L 02/08/25 02:50 49 L 96 02/08/25 02:45 48 L 96 02/08/25 02:40 47 L 97 02/08/25 02:38 48 L 97/56 L 02/08/25 02:35 48 L 97 02/08/25 02:30 48 L 97 02/08/25 02:25 51 L 97 02/08/25 02:22 50 L 97/55 L 02/08/25 02:20 50 L 97 02/08/25 02:15 44 L 97 02/08/25 02:10 46 L 97 02/08/25 02:07 46 L 96/51 L 02/08/25 02:05 47 L 96 02/08/25 02:00 47 L 96 02/08/25 01:55 47 L 97 02/08/25 01:51 46 L 105/52 L 02/08/25 01:50 46 L 97 02/08/25 01:45 47 L 96 02/08/25 01:40 49 L 97 02/08/25 01:37 46 L 99/51 L 02/08/25 01:35 52 L 98 02/08/25 01:30 50 L 98 02/08/25 01:25 49 L 99 02/08/25 01:23 66 116/65 02/08/25 01:20 52 L 98 02/08/25 01:15 53 L 98 02/08/25 01:10 51 L 96 02/08/25 01:07 48 L 106/56 L 02/08/25 01:05 50 L 98 02/08/25 01:00 54 L 99 02/08/25 00:55 56 L 99 02/08/25 00:53 54 L 92/58 L 02/08/25 00:50 51 L 99 02/08/25 00:45 53 L 98 02/08/25 00:40 61 99 02/08/25 00:38 52 L 106/59 L 02/08/25 00:35 63 100 02/08/25 00:30 56 L 18 99 02/08/25 00:25 57 L 100 02/08/25 00:22 53 L 108/54 L 02/08/25 00:20 63 100 02/08/25 00:15 55 L 100 02/08/25 00:10 52 L 99 02/08/25 00:08 64 105/62 02/08/25 00:05 55 L 100 02/08/25 00:00 56 L 100 02/07/25 23:55 129 H 98 02/07/25 23:50 91 H 99 02/07/25 23:45 66 99 02/07/25 23:40 52 L 96 02/07/25 23:37 51 L 124/63 02/07/25 23:35 50 L 96 02/07/25 23:30 49 L 98 02/07/25 23:25 61 99 02/07/25 23:23 53 L 125/61
[2025-02-08] MEDS ORDERED: ACETAMINOPHEN 325 MG TAB PO PRN (12:41)
[2025-02-08] MEDS ORDERED: BENZOCAINE 20% SPRY 85 APPLN/85 GM CAN EXT PRN (12:41)
[2025-02-08] MEDS ORDERED: OXYTOCIN 30 UNITS/NSS 30 UNITS/500 ML BAG IV PRN (12:41)
[2025-02-08] MEDS ORDERED: PROMETHAZINE HCL 25 MG TAB PO PRN (12:41)
[2025-02-08] MEDS ORDERED: HYDROCORTISONE ACETATE 25 MG SUPP PR PRN (12:41)
--- NOTE | 2025-02-08 12:45 | Post Operative Brief Note ---
Immediate Post Op Note Date of Surgery February 08, 2025 Surgeon Deandre Penn MD
--- NOTE | 2025-02-08 12:49 | Delivery Summary ---
Vaginal Delivery Summary Date of Service February 08, 2025 Vaginal Delivery Summary live female KERVIN with delayed cord clamping and Apgars 8/9 weight pending. Placenta delivered spontaneously intact. No tears. QBL 50 ml. Final sponge and instrument count are correct. Mom and baby stable.
[2025-02-08] MEDS: DIPHTHER/TETAN/PERTUS Vaccine (Tdap, Adol/Adult) 0.5mL IM ONE (13:13)
[2025-02-08] MEDS: IBUPROFEN 600 MG TAB PO PRN (13:35)
--- NOTE | 2025-02-08 14:28 | Anesthesia Procedure Note ---
Date of Service February 08, 2025 Anesthesia Post Epidural Note Vital Signs Vital Signs: Temp Pulse Resp BP Pulse Ox O2 Del Method 37.2 C 49 L 20 125/57 L 100 Room Air 02/08/25 11:00 02/08/25 14:08 02/08/25 12:00 02/08/25 14:08 02/08/25 12:02/07/25 16:00 Pain Intensity Lower Abdomen: Pain Intensity: 0 Notes Mental Status: alert / awake / arousable and participated in evaluation Nausea / Vomiting: adequately controlled Pain: adequately controlled Airway Patency, RR, SpO2: stable & adequate BP & HR: stable & adequate Hydration State: stable & adequate Neuraxial Anesthesia: was administered and sensory block is resolving Anesthetic Complications: no major complications apparent and Pt Satisfied with anesthetic care Epidural: Removed without complications and With tip intact
[2025-02-08] MEDS: DOCUSATE SODIUM 100 MG CAP PO SCH (20:46)
[2025-02-09 06:42] LABS: Hematocrit (blood only) 37.7 % (37.0-47.0); Hemoglobin 12.7 g/dL (12.0-16.0); Mean Corpuscular Hemoglobin 29.9 pg (25.0-34.0); Mean Corpuscular Volume 88.7 fL (80.0-100.0); Platelet Count 154 K/uL (130-400); RDW Standard Deviation 40.9 fL (36.4-46.3); Red Blood Count 4.25 M/uL (4.20-5.40); White Blood Count 14.57 K/ul (4.8-10.8)
[2025-02-09] MEDS: PRENATAL VITAMIN 1 TAB PO SCH (07:25)
[2025-02-09] MEDS: FERROUS SULFATE 325 MG TAB PO SCH (07:25)
[2025-02-09] MEDS ORDERED: Nursing to Pharmacy Communication SCH (08:15)
[2025-02-09] MEDS ORDERED: FERROUS SULFATE 325 MG TAB PO SCH (09:00)
[2025-02-09 11:15] VITALS: BP 123/81; PULSE 59; RESP 18; TEMP 97.9; O2SAT 96
--- NOTE | 2025-02-09 14:08 | Obstetrical Progress Note ---
Date of Service February 09, 2025 Assessment & Plan Admission and Anticipated Discharge Date Admission Date: February 07, 2025 Subjective abdomen soft and non tender no calf tenderness ambulating well vaginal bleeding scant hgb 12.7 Results & Data Vital Signs (Past 12 Hours) Vital Signs Temp Pulse Resp BP Pulse Ox O2 Del Method 02/09/25 11:13 36.6 C 59 L 18 123/81 96 Room Air 02/09/25 07:25 Room Air 02/09/25 07:25 36.5 C 74 16 112/71 99 Room Air 02/09/25 03:57 36.5 C 60 18 145/80 H
== END 2025-02-09 14:55 | disposition home or self-care (01) | DRG 807 ==
LOC: 4S1 07:41 → 4E2 02-08 15:15